=== PATIENT | male | born 1980 | race Two or more races ===

== ENCOUNTER 2022-02-22 03:13 | Emergency (ER) | payer OTHER ==
[~2022-02-22] VITALS: Ht 185.4 cm; Wt 104.3 kg
[~2022-02-22 03:13] MED LIST: NABUMETONE500 MG PO; PERCOCET 5/3251 TAB PO
[2022-02-22] MEDS ORDERED: KETO10TA2 PO (05:05)
[2022-02-22] MEDS ORDERED: NORFLEX100MG PO (05:05)
== END 2022-02-22 05:12 ==
LOC: ER 03:13
DX: M25.551 Pain in right hip (principal); M79.604 Pain in right leg

== ENCOUNTER 2022-03-04 10:08 | Outpatient (CLI) | payer OTHER ==
[~2022-03-04 10:08] MED LIST changes: +KETO10TA2 PO; +NORFLEX100MG PO
== END 2022-03-04 10:21 | disposition home or self-care (01) ==
LOC: RAD 10:08
PROVIDERS: ATTEND Orthopaedic Surgery
DX: M25.551 Pain in right hip (principal); M25.561 Pain in right knee; M25.562 Pain in left knee
CPT/HCPCS: 73718

== ENCOUNTER 2023-08-12 18:00 | Emergency (ER) | payer OTHER ==
[~2023-08-12] VITALS: Ht 182.9 cm; Wt 104.8 kg
[2023-08-12] MEDS ORDERED: PROTONIX40 M1 (18:34)
[2023-08-12] MEDS ORDERED: NORVASC5 MG PO (18:34)
[2023-08-12 21:58] LABS: HEMATOCRIT 46.7 % (39.0-48.0); HEMOGLOBIN 16.1 g/dL (13-16.00); MEAN CELL VOLUME 80.2 fL (80.0-100.00); MEAN CORPUSCULAR HEMOGLOBIN 27.7 pg (27.00-32.0); MEAN CORPUSCULAR HGB CONC 34.5 g/dl (32.0-36.0); PLATELET COUNT 162 K/uL (150-450); RED BLOOD COUNT 5.82 M/uL (4.00-6.00)
[2023-08-12] MEDS ORDERED: MOTRIN IB200 MG PO (23:01)
[2023-08-12] MEDS ORDERED: COUGH & CHEST177 ML PO (23:01)
== END 2023-08-12 23:17 | disposition home or self-care (01) ==
LOC: ER 18:00
PROVIDERS: Nurse Practitioner Family
DX: R05.8 Other specified cough (principal); I10 Essential (primary) hypertension; Z20.822 Contact with and (suspected) exposure to COVID-19

== ENCOUNTER 2025-01-02 09:28 | Outpatient (CLI) | payer OTHER ==
[~2025-01-02 09:28] MED LIST changes: +COUGH & CHEST177 ML PO; +MOTRIN IB200 MG PO; +NORVASC5 MG PO; +PROTONIX40 M1
== END 2025-01-02 09:49 | disposition home or self-care (01) ==
LOC: MRI 09:28
PROVIDERS: ATTEND Psychiatry & Neurology Neurology
DX: G70.9 Myoneural disorder, unspecified (principal); M50.20 Other cervical disc displacement, unspecified cervical region
CPT/HCPCS: 70551